=== PATIENT | female | born 1945 | race Caucasian/White ===

== ENCOUNTER 2019-11-17 13:43 | Outpatient (CLI) | payer MEDICARE, MEDICAID ==
--- NOTE | 2019-11-17 14:35 | ULT ---
Exam: Bilateral lower arterial ultrasound with Doppler HISTORY: Cyanosis. COMPARISON: None TECHNIQUE: Grayscale, color flow, Doppler imaging and spectral waveform analysis of the left and righ t lower extremity arterial system FINDINGS: Right lower extremity: Biphasic flow in the common femoral artery, proximal mid and distal superficia l femoral artery, popliteal artery, anterior tibial artery and posterior tibial artery. Triphasic flow in the profunda femoral artery. Monophasic flow in the dorsalis pedis artery Left lower extremity: Biphasic flow in the common femoral artery, proximal mid and distal superficial femoral artery, popliteal artery, anterior tibial artery. Biphasic flow in the profunda femoral artery, posterior tibial artery. Monophasic flow in the dorsalis pedis artery Lower extremity velocities in centimeters per second Right lower extremity: Common femoral artery 114.7 Profunda femoral artery 93.6 SFA proximal 110.7 SFA mid 125.3 SFA distal 113.1 Popliteal artery 58.6 Anterior tibial artery 83.9 Posterior tibial artery 48.2 Dorsalis pedis artery 19.2 Left lower extremity: Common femoral artery 125.3 Profunda femoral artery 113.9 Superficial femoral artery proximal 112.3 Superficial femoral artery mid 89.4 Superficial femoral artery distal 16.0 Popliteal artery 82.4 Anterior tibial artery 103.6 Posterior tibial artery 61.4 Dorsalis pedis artery 14.5 IMPRESSION: Biphasic flow throughout the majority the left right lower extremity arterial system. Given patient's symptoms, consider CT angiogram of the abdominal aorta with bilateral lower extremity runoff Transcribed Date/Time: 11/17/2019 3:10 PM
== END 2019-11-17 13:44 | disposition home or self-care (01) ==
LOC: ULT 13:43
PROVIDERS: ATTEND Family Medicine
DX: R23.0 Cyanosis (principal)
CPT/HCPCS: 93923